=== PATIENT | female | born 1990 | race Two or more races ===

== ENCOUNTER 2017-10-31 09:55 | Outpatient (CLI) | payer OTHER ==
[~2017-10-31 09:55] MED LIST: AMBIEN10 MG; INTESTINEX680 MG PO; NEXIUM2.5 MG; PEPCID20 MG PO; PRESTIGE; ZANTAC150 M3
== END 2017-10-31 09:56 | disposition home or self-care (01) ==
LOC: LAB 09:55
DX: C83.39 Diffuse large B-cell lymphoma, extranodal and solid organ sites (principal); Z44.8 Encounter for fitting and adjustment of other external prosthetic devices; M54.5 Low back pain; C90.00 Multiple myeloma not having achieved remission

== ENCOUNTER 2022-01-21 07:23 | Outpatient (CLI) | payer OTHER ==
[~2022-01-21] VITALS: Ht 165.1 cm; Wt 80.7 kg
[2022-01-21] MEDS ORDERED: ATIVAN0.5 M1 PO (12:55)
== END 2022-01-21 07:35 | disposition home or self-care (01) ==
LOC: LAB 07:23
PROVIDERS: ATTEND Orthopaedic Surgery
DX: D64.9 Anemia, unspecified (principal); E88.9 Metabolic disorder, unspecified; D68.8 Other specified coagulation defects; N39.0 Urinary tract infection, site not specified; A49.02 Methicillin resistant Staphylococcus aureus infection, unspecified site; E11.9 Type 2 diabetes mellitus without complications; Z76.89 Persons encountering health services in other specified circumstances; I49.9 Cardiac arrhythmia, unspecified; I10 Essential (primary) hypertension

== ENCOUNTER 2022-01-31 13:17 | Outpatient (CLI) | payer OTHER ==
[~2022-01-31 13:17] MED LIST changes: +ATIVAN0.5 M1 PO
== END 2022-01-31 13:28 | disposition home or self-care (01) ==
LOC: LAB 13:17
PROVIDERS: ATTEND Orthopaedic Surgery
DX: Z03.818 Encounter for observation for suspected exposure to other biological agents ruled out (principal)

== ENCOUNTER 2022-02-05 05:17 | Day surgery (SDC) | payer OTHER ==
[~2022-02-05] VITALS: Ht 165.1 cm; Wt 79.4 kg
== END 2022-02-05 10:52 | disposition home or self-care (01) ==
LOC: CIR.AMB 05:17 → ADM 02-22 13:15
PROVIDERS: ATTEND Orthopaedic Surgery
DX: M65.861 Other synovitis and tenosynovitis, right lower leg (principal); Z20.822 Contact with and (suspected) exposure to COVID-19; M22.11 Recurrent subluxation of patella, right knee; M12.261 Villonodular synovitis (pigmented), right knee; M23.231 Derangement of other medial meniscus due to old tear or injury, right knee; Z88.8 Allergy status to other drugs, medicaments and biological substances; J45.909 Unspecified asthma, uncomplicated; Z85.89 Personal history of malignant neoplasm of other organs and systems

== ENCOUNTER 2022-05-01 17:21 | Emergency (ER) | payer OTHER ==
[~2022-05-01] VITALS: Ht 167.6 cm; Wt 68.0 kg
== END 2022-05-01 20:31 | disposition home or self-care (01) ==
LOC: ER 17:21
DX: S73.005A Unspecified dislocation of left hip, initial encounter (principal)

== ENCOUNTER 2022-09-13 09:08 | Outpatient (CLI) | payer OTHER | END 2022-09-13 09:21 | disposition home or self-care (01) | LOC: LAB 09:08 | PROVIDERS: ATTEND Internal Medicine Hematology & Oncology | DX: C83.30 Diffuse large B-cell lymphoma, unspecified site (principal) ==

== ENCOUNTER 2022-10-02 07:44 | Outpatient (CLI) | payer OTHER | END 2022-10-02 07:46 | disposition home or self-care (01) | LOC: NUCLEAR 07:44 | PROVIDERS: ATTEND Internal Medicine Hematology & Oncology | DX: C83.30 Diffuse large B-cell lymphoma, unspecified site (principal) | CPT/HCPCS: 78815; A9552 ==

== ENCOUNTER → 2023-02-27 09:27 | Outpatient (CLI) | payer OTHER ==
[2023-02-27 10:05] LABS: URINE APPEARANCE Cloudy; URINE BILIRRUBIN Negative (NEGATIVE); URINE BLOOD Negative; URINE COLOR Yellow; URINE GLUCOSE Negative (NEGATIVE); URINE LEUKOCYTE Negative; URINE NITRATE Negative; URINE PROTEIN Negative (NEGATIVE); URINE UROBILINOGEN 0.2 E.U./dl
[2023-02-27 10:08] LABS: HEMATOCRIT 43.7 % (36.0-45.00); HEMOGLOBIN 14.6 g/dL (12.0-15.00); MEAN CELL VOLUME 88.3 fL (80.00-100.00); MEAN CORPUSCULAR HEMOGLOBIN 29.5 pg (27.00-32.0); MEAN CORPUSCULAR HGB CONC 33.4 g/dl (32.0-36.0); PLATELET COUNT 288 K/uL (150-450); RED BLOOD COUNT 4.95 M/uL (4.00-6.00); RED CELL DISTRIBUTION WIDTH 14.3 % (11.5-14.5)
[2023-02-27 10:11] LABS: URINE EPITHELIAL CELLS 59.3 uL (0.0-38.8); URINE RBC 14.5 uL (0.0-20.8)
[2023-02-27 10:25] LABS: ERYTHROCYTE SEDIMENTATION RATE 7 mm/hr
[2023-02-27 10:34] LABS: ALBUMIN 3.6 gm/dL (3.4-5.0); BILIRUBIN TOTAL 0.31 mg/dL (0.3-1.2); CALCIUM 9.4 mg/dL (8.5-10.1); CREATININE SERUM 0.71 mg/dL (0.55-1.02); GFR 94.8; GLOBULINA 3.3 G/DL (2.4-3.5); POTASSIUM 3.41 mEq/L (3.5-5.1); TOTAL PROTEIN 6.9 gm/dL (6.4-8.2)
[2023-02-27 10:35] LABS: C-REACTIVE PROTEIN 1.04 MG/DL (0.00-0.29)
== END | disposition home or self-care (01) ==
LOC: LAB 09:27
PROVIDERS: ATTEND Internal Medicine Hematology & Oncology
DX: R74.01 Elevation of levels of liver transaminase levels (principal); C83.30 Diffuse large B-cell lymphoma, unspecified site; I77.6 Arteritis, unspecified; M06.09 Rheumatoid arthritis without rheumatoid factor, multiple sites; D50.0 Iron deficiency anemia secondary to blood loss (chronic); N39.0 Urinary tract infection, site not specified; N18.9 Chronic kidney disease, unspecified; M32.10 Systemic lupus erythematosus, organ or system involvement unspecified; A64 Unspecified sexually transmitted disease; M10.9 Gout, unspecified; M45.0 Ankylosing spondylitis of multiple sites in spine; R74.8 Abnormal levels of other serum enzymes; E55.9 Vitamin D deficiency, unspecified; D51.9 Vitamin B12 deficiency anemia, unspecified; Z88.4 Allergy status to anesthetic agent; Z88.5 Allergy status to narcotic agent